=== PATIENT | male | born 2000 | race Caucasian/White ===

== ENCOUNTER 2023-10-23 08:22 | Outpatient (AMB) | payer OTHER, SELFPAY ==
[2023-10-23 08:42] VITALS: BP 112/80; PULSE 116; TEMP 37.1; O2SAT 98; BMI 22.9
--- NOTE | 2023-10-23 08:42 | MHC.OFFWIV ---
Intake Vital Signs 10/23/23 08:42 Height 5 ft 9 in Weight 155 lb BMI 22.9 BP 112/80 Blood Pressure Location Rt brachial Position Sitting Pulse 116 H Pulse Source Pulse Oximeter Temp 98.8 F Temp Source Oral Pulse Oximetry (%) 98 Oxygen Delivery Method Room Air Intake Visit Reasons: [employer] ?Tick bite Intake Note: pt here c/o ? tick bite on lower back Patient Tobacco Use Status: Never used Tobacco Allergies No Known Allergies Allergy (Verified 10/23/23 08:42) Do you need a note to return to daycare/school/sports/work: No HPI HPI Comments History of Present Illness Details 23 y/o male patient who presents to walk in clinic with c/o possible Tick bite on the back. Pt reports feeling something like a scab or tick bite not sure, he noticed this yesterday. Denies being in the [place]. Denies seeing a tick or removing one. Denies Systemic symptoms. PFSH Social History Patient Tobacco Use Status: Never used Tobacco Review of Systems Const All systems reviewed & are unremarkable except as noted in HPI and below Physical Exam Vital Signs: Last Vital Signs Temp 98.8 F 10/23/23 08:42 Pulse 116 H 10/23/23 08:42 BP 112/80 10/23/23 08:42 Pulse Ox 98 10/23/23 08:42 Oxygen Delivery Method Room Air 10/23/23 08:42 BMI result Body Mass Index 22.9 Const General: comfortable Nutritional Appearance: well nourished Orientation/consciousness: patient oriented x3 Skin Other: No tick, no bites, no rash, skin on the back clear pink in color. General skin exam: no rashes or lesions noted, dry skin and no erythema Rashes: no rashes Trauma: no lacerations or abrasions Neuro General: patient oriented x3, gait normal and moves all extremities Psych Speech and movement: Normal speech and movement present Assessment & Plan Assessment & Plan (1) Scab: Code(s): R23.4 - Changes in skin texture Plan: No tick bites or Bulls eye rash on the back. Exam normal. Advised Pt to reports any symptoms such as fevers, chills, malaise, headaches, nausea or vomiting. Coding Level of Care Code New Pt Level 3 (31644) Diagnoses Scab R23.4 Time Spent (min) 15
== END 2023-10-23 09:17 | disposition home or self-care (01) ==
PROVIDERS: PCP Pediatrics Adolescent Medicine; Visit Provider Nurse Practitioner Family
DX: R23.4 Changes in skin texture (principal)
CPT/HCPCS: 99203